=== PATIENT | female | born 1975 | race Asian ===

== ENCOUNTER 2017-12-10 08:33 | Outpatient (CLI) | payer OTHER ==
[2017-12-10 09:06] LABS: CHOL/HDL RATIO 4.1 (<4.4); CHOLESTEROL 205 mg/dL; GLUCOSE 104 mg/dL (70-100); HDL CHOLESTEROL 50 mg/dL; LDL CHOLESTEROL,CALCULATED 124 mg/dL; LDL/HDL RATIO 2.5 (<4.4); VLDL CHOLESTEROL 31 mg/dL
== END 2017-12-10 08:34 | disposition home or self-care (01) ==
LOC: LAB 08:33
PROVIDERS: ATTEND Family Medicine
DX: Z13.220 Encounter for screening for lipoid disorders (principal)
CPT/HCPCS: 36415; 80061; 82947; 83721